=== PATIENT | male | born 1985 | race American Indian/Alaskan Native ===

== ENCOUNTER 2019-04-22 10:44 | Emergency (ER) | payer SELFPAY ==
[2019-04-22 10:59] VITALS: BP 152/78
--- NOTE | 2019-04-22 12:02 | Emergency Department Report ---
ED General Adult HPI - General Chief complaint: Extremity Injury, Upper Stated complaint: ELECTRIC SHOCK FRM PV OUTLET Time Seen by Provider: 04/22/19 11:42 Source: patient Mode of arrival: Ambulatory Limitations: No Limitations - History of Present Illness Initial comments: Patient is a 33-year-old -German male who received an electric shock f rom a faulty wire 2 days ago. The patient states he was unplugging a TV that had a afraid wire. Patient felt electric shock go into his hand up to the mid forearm. Patient still has some mild tingling as well as some soreness to the forearm. He denies any swelling or decreased range of motion to the hand. Patient is concerned that the discomfort has not resolved as of yet. - Related Data Previous Rx's Medication Instructions Recorded Last Taken Type Butalb/Acetaminophen/Caffeine 1 cap PO Q8HR PRN #15 cap 06/23/16 Unknown Rx [Fioricet 50-300-40 mg CAP] Ketorolac [Toradol] 10 mg PO Q6H PRN #12 tablet 04/22/19 Unknown Rx methOCARBAMOL [Robaxin TAB] 500 mg PO Q6H PRN #14 tablet 04/22/19 Unknown Rx traMADol [Ultram] 50 mg PO Q6HR PRN #12 tablet 04/22/19 Unknown Rx Allergies Allergy/AdvReac Type Severity Reaction Status Date / Time No Known Allergies Allergy Verified 06/23/16 07:56 ED Review of Systems ROS: Stated complaint: ELECTRIC SHOCK FRM PV OUTLET Other details as noted in HPI Comment: All other systems reviewed and negative ED Past Medical Hx - Past Medical History Previous Medical History?: No - Surgical History Additional Surgical History: right rotator cuff surg. - Social History Smoking Status: Current Every Day Smoker Substance Use Type: Alcohol - Medications Home Medications: Home Medications Medication Instructions Recorded Confirmed Last Taken Type Butalb/Acetaminophen/Caffeine 1 cap PO Q8HR PRN #15 cap 06/23/16 Unknown Rx [Fioricet 50-300-40 mg CAP] Ketorolac [Toradol] 10 mg PO Q6H PRN #12 tablet 04/22/19 Unknown Rx methOCARBAMOL [Robaxin TAB] 500 mg PO Q6H PRN #14 tablet 04/22/19 Unknown Rx traMADol [Ultram] 50 mg PO Q6HR PRN #12 tablet 04/22/19 Unknown Rx ED Physical Exam - General Limitations: No Limitations General appearance: alert, in no apparent distress - Head Head exam: Present: atraumatic, normocephalic - Eye Eye exam: Present: normal appearance - ENT ENT exam: Present: mucous membranes moist - Neck Neck exam: Present: normal inspection - Respiratory Respiratory exam: Present: normal lung sounds bilaterally. Absent: respiratory distress, wheezes, rales, rhonchi - Cardiovascular Cardiovascular Exam: Present: regular rate, normal rhythm. Absent: systolic murmur, diastolic murmur, rubs, gallop - GI/Abdominal GI/Abdominal exam: Present: soft, normal bowel sounds - Rectal Rectal exam: Present: deferred - Extremities Exam Extremities exam: Present: normal inspection, other (patient's right forearm shows no swelling. He does have tenderness to palpation. There is full range of motion to the hand.) - Back Exam Back exam: Present: normal inspection - Neurological Exam Neurological exam: Present: alert, oriented X3 - Psychiatric Psychiatric exam: Present: normal affect, normal mood - Skin Skin exam: Present: warm, dry, intact, normal color. Absent: rash ED Course Vital Signs 04/22/19 10:57 Temperature 99 F Pulse Rate 92 H Respiratory 18 Rate Blood Pressure 152/78 O2 Sat by Pulse 100 Oximetry Critical care attestation.: If time is entered above; I have spent that time in minutes in the direct care of this critically ill patient, excluding procedure time. ED Disposition Clinical Impression: Electric shock Qualifiers: Encounter type: initial encounter Qualified Code(s): T75.4XXA - Electrocution, initial encounter Disposition: DC-01 TO HOME OR SELFCARE Is pt being admited?: No Does the pt Need Aspirin: No Condition: Stable Instructions: Electrical [place] in Adults (ED), Musculoskeletal Pain (ED) Referrals: DEVON BLOOM MD [Referring] - 3-5 Days Time of Disposition: 12:03
== END 2019-04-22 12:19 | disposition home or self-care (01) ==
LOC: ED 10:44
DX: T75.4XXA Electrocution, initial encounter (principal); F17.200 Nicotine dependence, unspecified, uncomplicated; Y92.89 Other specified places as the place of occurrence of the external cause